=== PATIENT | female | born 1995 | race Caucasian/White ===

== ENCOUNTER 2019-07-29 21:27 | Emergency (ER) | payer SELFPAY ==
[~2019-07-29] VITALS: Ht 172.7 cm; Wt 74.8 kg
--- NOTE | 2019-07-29 21:40 | NUR ---
PT LUIS ENRIQUE FROM HOME C/O INTERMITTENT LOCK JAW X6 MONTHS. PT STATES SYMPTOMS BEGAN AFTER GETTING WISDOM TEETH REMOVED. EPISODES LAST "A FEW MINUTES" PAIN RELIEVED WITH HEAT/MASSAGE. PT AAOX4. RESPIRATIONS EVEN AND UNLABORED. VITAL SIGNS STABLE. NO ACUTE DISTRESS NOTED AT THIS TIME. WILL CONTINUE TO MONITOR
[2019-07-29] MEDS ORDERED: BENZTROPINE MESYLATE (1 MG) 1 MG TABLET PO ONE (22:00)
[2019-07-29] MEDS ORDERED: BENZTROPINE MESYLATE (1 MG) 1 MG TABLET ONE (22:01)
--- NOTE | 2019-07-29 22:06 | NUR ---
Patient discharged to home in stable condition. Written and verbal after care instructions given. Patient verbalizes understanding of instruction.Pt ambulatory with a steady gait
[2019-07-29 22:07] VITALS: BP 124/66
[2019-07-29] MEDS ORDERED: BENZTROPINE MESYLATE (2MG/2ML) 2 MG/2 ML AMPUL IM ONE (22:30)
--- NOTE | 2019-07-29 22:31 | NUR ---
PT'S JAW BEGAN TO LOCK UPON DISCHARGE. PT ASSISTED BACK TO ER BED 1. MAUR[facility] [employer] AT BEDSIDE FOR EVALUATION
[2019-07-29] MEDS ORDERED: BENZTROPINE MESYLATE (2MG/2ML) 2 MG/2 ML AMPUL ONE (22:33)
== END 2019-07-29 22:08 | disposition home or self-care (01) ==
LOC: ER 21:29
DX: G24.09 Other drug induced dystonia (principal); T43.595A Adverse effect of other antipsychotics and neuroleptics, initial encounter; F32.9 Major depressive disorder, single episode, unspecified; F41.9 Anxiety disorder, unspecified; Z88.2 Allergy status to sulfonamides; Z88.1 Allergy status to other antibiotic agents; Z88.8 Allergy status to other drugs, medicaments and biological substances; Y92.89 Other specified places as the place of occurrence of the external cause
CPT/HCPCS: 96372; 99283; J0515